=== PATIENT | female | born 1950 ===

== ENCOUNTER 2019-09-09 18:53 | Inpatient (IN) | payer MEDICARE ==
[2019-09-10] MEDS ORDERED: ONDANSETRON 4 MG/2 ML INJ IV PRN (01:46)
[2019-09-10] MEDS ORDERED: ACETAMINOPHEN 325 MG TAB PO PRN (01:46)
--- NOTE | 2019-09-10 03:03 | History and Physical Report ---
History of Present Illness Date of examination: 09/10/19 Date of admission: 09/10/19 00:27 Chief complaint: Constipation and abdominal pain History of present illness: 69-year-old -[place] female with known history of hypertension hyperlipidemia COPD was transferred from [facility] today having been admitted for unintentional 40 pounds weight loss over a period of 1 month. She had also complaining of abdominal and rectal pain and also constipation for about a week. She has been prepared for colonoscopy and was subsequently transferred to this facility from [facility] for further care. She currently denies any problems, denies any abdominal pain, no nausea vomiting. Past History Past Medical History: COPD, hypertension Past Surgical History: appendectomy Social history: smoking (Smokes less than a pack of cigarette daily) Family history: other (Heart disease in mother) Medications and Allergies Allergies Allergy/AdvReac Type Severity Reaction Status Date / Time No Known Allergies Allergy Verified 09/10/19 05:57 Active Meds: Active Medications Acetaminophen (Tylenol) 650 mg PO Q4H PRN PRN Reason: Pain MILD(1-3)/Fever >100.5/HUANG Sodium Chloride (Nacl 0.9% 1000 Ml) 1,000 mls @ 75 mls/hr IV DIRECT ANNA Morphine Sulfate (Morphine) 2 mg IV Q4H PRN PRN Reason: Pain, Moderate (4-6) Ondansetron HCl (Zofran) 4 mg IV Q8H PRN PRN Reason: Nausea And Vomiting Sodium Chloride (Sodium Chloride Flush Syringe 10 Ml) 10 ml IV BID ANNA Sodium Chloride (Sodium Chloride Flush Syringe 10 Ml) 10 ml IV PRN PRN PRN Reason: LINE FLUSH Review of Systems Constitutional: weight loss Gastrointestinal: constipation Exam - Constitutional Vitals: Temp Pulse Resp BP Pulse Ox 98.9 F 83 18 147/87 99 09/10/19 00:37 09/10/19 00:37 09/10/19 00:37 09/10/19 00:37 09/10/19 00:37 General appearance: Present: no acute distress, cachectic - EENT Eyes: Present: PERRL, EOM intact ENT: hearing intact, clear oral mucosa - Neck Neck: Present: supple, normal ROM - Respiratory Respiratory: bilateral: CTA - Cardiovascular Rhythm: regular Heart Sounds: Present: S1 & S2 - Extremities Extremities: no ischemia, pulses intact, No edema, Full ROM Peripheral Pulses: within normal limits - Abdominal General gastrointestinal: Present: soft, non-tender, non-distended - Integumentary Integumentary: Present: clear, warm, dry - Musculoskeletal Musculoskeletal: strength equal bilaterally - Psychiatric Psychiatric: appropriate mood/affect, intact judgment & insight, cooperative - Neurologic Neurologic: CNII-XII intact, moves all extremities Assessment and Plan - Patient Problems (1) Constipation Current Visit: Yes Status: Acute Plan to address problem: Patient has taken some GoLYTELY and being currently prepared for colonoscopy. We will request stat gastroenterology follow-up. (2) Weight loss Current Visit: Yes Status: Acute Plan to address problem: Etiology is unclear. We will monitor weight. Imaging findings at [facility] was suspicious for metastatic malignancy and metastatic ovarian or colonic cancer. Patient is being worked up for colonoscopy. (3) Hypertension Current Visit: Yes Status: Acute Plan to address problem: Blood pressure stable. We will monitor vital signs closely. We will continue routine home medications. (4) Full code status Current Visit: Yes Status: Acute
--- NOTE | 2019-09-10 10:30 | Gastroenterology Consultation ---
History of Present Illness - Reason for Consult Consult date: 09/10/19 constipation, wt loss, evaluate for colonoscopy Requesting physician: MEREDITH REDMAN - History of Present Illness Patient is a 69 y/o female with PMH of HTN, HLD, and COPD who was transferred from [facility] for further care after being admitted for c/o abdominal pain, constipation, N/V, and unintentional weight loss over the past couple of months. Labs (DANAY; CEA/CA 19-9 elevated) and Abd CT findings (adnexal lesion, sigmod thickening, hepatic lesion?, and adrenal lesion; CT chest with no overt metastatic disease) at [place] were concerning for metastatic malignancy (ovarian vs GI?) with patient pending further workup with a colonoscopy. This morning patient was resting in bed w/o acute distress. Reports continued abdominal pain but no current N/V. Drank 3/4 on colon prep (Golytely) overnight with last BM this am light watery brown (no solid stool). Denies signs of bleeding. No previous colonoscopy or Fhx of colon cancer. Past History Past Medical History: COPD, hypertension Past Surgical History: appendectomy Social history: smoking (Smokes less than a pack of cigarette daily) Family history: other (Heart disease in mother) Medications and Allergies Allergies Allergy/AdvReac Type Severity Reaction Status Date / Time No Known Allergies Allergy Verified 09/10/19 05:57 Home Medications Medication Instructions Recorded Confirmed Last Taken Type Aspirin EC [Halfprin EC] 81 mg DAILY 09/10/19 09/10/19 Unknown History AtorvaSTATin [Lipitor] 10 mg PO QHS 09/10/19 09/10/19 Unknown History Chlorthalidone 50 mg DAILY 09/10/19 09/10/19 Unknown History Active Meds: Active Medications Acetaminophen (Tylenol) 650 mg PO Q4H PRN PRN Reason: Pain MILD(1-3)/Fever >100.5/HUANG Sodium Chloride (Nacl 0.9% 1000 Ml) 1,000 mls @ 75 mls/hr IV DIRECT ANNA Magnesium Citrate (Citrate Of Magnesia) 300 ml PO ONCE ONE Stop: 09/10/19 10:29 Morphine Sulfate (Morphine) 2 mg IV Q4H PRN PRN Reason: Pain, Moderate (4-6) Ondansetron HCl (Zofran) 4 mg IV Q8H PRN PRN Reason: Nausea And Vomiting Sodium Chloride (Sodium Chloride Flush Syringe 10 Ml) 10 ml IV BID ANNA Last Admin: 09/10/19 09:22 Dose: 10 ml Documented by: Sodium Chloride (Sodium Chloride Flush Syringe 10 Ml) 10 ml IV PRN PRN PRN Reason: LINE FLUSH medications reviewed/updated as required Review of Systems - Review of Systems All systems: negative Constitutional: weight loss Gastrointestinal: abdominal pain, nausea, vomiting, constipation Exam - Constitutional Vital Signs: Temp Pulse Resp BP Pulse Ox 98.4 F 94 H 16 131/65 95 09/10/19 02:36 09/10/19 02:36 09/10/19 02:36 09/10/19 02:36 09/10/19 02:36 General appearance: no acute distress, cachectic - EENT Eyes: PERRL, EOM intact ENT: hearing intact - Respiratory Respiratory effort: normal - Cardiovascular Rhythm: regular - Gastrointestinal General gastrointestinal: Present: soft, tender (slight TTP), distended (slightly), normal bowel sounds - Integumentary Integumentary: Present: warm, dry - Neurologic Neurological: alert and oriented x3 Assessment and Plan 1.abdominal pain 2.N/V 3.constipation 4.iron deficiency anemia 5.abnormal CT (concern for malignancy) -afebrile -H/H 11.3/36.1, ferritin 22 (09/08 at [facility])-continue to monitor and transfuse as needed; no active signs of bleeding -CEA/CA 19-9 elevated (at [place]) -abd CT (at [facility]) showed adnexal lesion, sigmoid thickening, hepatic lesion?, and adrenal lesion with concerns for metastatic disease (CT chest w/o overt metastatic disease) -per chart review, IR at [facility] noted liver lesion too superficial and close to pleura for biopsy, also not convinced it is a liver lesion but could be a pleural thickening, and adnexal lesion appears cystic and necrotic in nature and would require surgical excision -colonoscopy was recommended for further evaluation with patient given Golytely overnight (drank 3/4 with last BM with liquid light brown stool) -will order repeat labs for today, give 1 bottle of mag citrate now, and schedule for colonoscopy this afternoon -Keep NPO (okay for meds) -continue supportive care -further recommendations to follow pending colonoscopy results
[2019-09-10] MEDS ORDERED: MAGNESIUM CITRATE 300 ML ORAL LIQD PO NR (11:00)
[2019-09-10] MEDS ORDERED: SODIUM CHLORIDE 0.9% 1000 ML 1,000 ML ONE (13:12)
[2019-09-10] MEDS: SODIUM CHLORIDE 0.9% 1000 ML 1,000 ML IV SCH (13:40)
[2019-09-10] MEDS ORDERED: SODIUM CHLORIDE 0.9% 1000 ML 1,000 ML IV SCH (13:45)
[2019-09-10] MEDS ORDERED: PROPOFOL 200 MG/20 ML VIAL IV ONE (14:13)
--- NOTE | 2019-09-10 14:20 | Anesthesia Consultation ---
Anesthesia Consult and Med Hx Date of service: 09/10/19 - Airway Anesthetic Teeth Evaluation: Poor ROM Head & Neck: Adequate Mental/Hyoid Distance: Adequate Mallampati Class: Class I Intubation Access Assessment: Good - Pulmonary Exam CTA: Yes - Cardiac Exam Cardiac Exam: RRR - Pre-Operative Health Status ASA Pre-Surgery Classification: ASA3 Proposed Anesthetic Plan: MAC - Pulmonary Hx Smoking: Yes COPD: Yes - Cardiovascular System Hx Hypertension: Yes - Central Nervous System Hx Neuromuscular Disorder: No Hx Psychiatric Problems: No - Gastrointestinal Hx Gastroesophageal Reflux Disease: No - Endocrine Hx Renal Disease: No - Other Systems Hx Alcohol Use: No Hx Substance Use: No Hx Cancer: Yes (Ovarian Ca) - Additional Comments Anesthesia Medical History Comments: Patient denied previous anesthesia related complications.
--- NOTE | 2019-09-10 14:21 | Anesthesia Day of Surgery ---
Anesthesia Day of Surgery - Day of Surgery Patient Examined: Yes Patient H&P Reviewed: Yes Patient is NPO: Yes
--- NOTE | 2019-09-10 15:09 | Operative Report ---
Operative Report Operative Report: Flexible sigmoidoscopy: Procedure: Flexible sigmoidoscopy with biopsies Endoscopist: Fermin Smith MD Pre-operative Diagnosis/Indications:abnormal CT, weight loss Post-operative Diagnosis: distal sigmoid mass, poor prep History:See consult note Sedation:MAC Procedure Details: Indications, risks, and benefits were explained and consent was obtained. Pt was placed in the left lateral decubitus position and sedated. Video colonoscope was inserted thru the anus after digital exam, and advanced to the distal sigmoid colon. Scope was then gradually withdrawn with close inspection of the mucosa. Prep was poor. Findings: 1. There was an obstructing mass-like lesion in the distal sigmoid colon at about 20 cm. Despite multiple attempts, the scope could not be advanced beyond this area. A complete visualization of the mass lesion could not be obtained due to thicken surrounding mucosa and prep quality. Biopsies were obtained. The adjacent mucosa was marked with tattoo. 2. Nonbleeding small internal hemorrhoids seen on retroflexion view. Specimens:sigmoid colon mass biopsies. Complications:None; patient tolerated the procedure well. Disposition:Recover in the GI endoscopy unit and transfer to the floor. Impression: 1. There was an obstructing mass-like lesion in the distal sigmoid colon at about 20 cm. Despite multiple attempts, the scope could not be advanced beyond this area. A complete visualization of the mass lesion could not be obtained due to thicken surrounding mucosa and prep quality. Biopsies were obtained. The adjacent mucosa was marked with tattoo. This lesion is concerning for malignancy with possible mets as reported on CT done at [place]. Do not feel that there is complete obstruction due to this lesion. 2. Nonbleeding small internal hemorrhoids seen on retroflexion view. Recommendations: 1. Resume clear liquid diet. 2. Follow up pathology results. 3. Discussed with surgery. Will place a consult. 4. May need repeat or additional imaging if no access to the disc.
[2019-09-10] MEDS ORDERED: MORPHINE 2 MG/1 ML INJ ONE (15:48)
--- NOTE | 2019-09-10 16:09 | Consultation ---
History of Present Illness Consult date: 09/10/19 Reason for consult: abdominal pain Chief complaint: abdominal pain - History of present illness History of present illness: 69 yo F with hx of presented to [facility] with weight loss, abdominal pain, fatigue. Patient states she has been having periumbilical and right sided abdominal pain for several months. She has lost 40 lbs and has no appetite. She has one episode of emesis prior to presenting to [facility]. Her last solid BM was last Sunday. At [facility], she underwent w/u with labs including CEA, CA19-9 which were reported as high. She also had a CT scan A/P which was concerning for a necrotic right adnexal mass, thickening of the sigmoid colon, and a liver lesion. This was felt to be worrisome for metasatic ovarian ca. Per records, the liver lesion wad felt to be artifact due to pleural thickening and adnexal lesion was not accessible by IR biopsy due to location. Colonoscopy was planned. Pt was sent to [facility] for further care. She underwent colonoscopy today and was found to have a sigmoid mass that was not obstructing but could not be passed with the scope. Surgery is consulted for evaluation. Pt was able to tolerate a prep for cscope. She denies hematochezia, melena, hematemesis Past History Past Medical History: COPD, hypertension Past Surgical History: appendectomy Social history: smoking (Smokes less than a pack of cigarette daily) Family history: other (Heart disease in mother) Medications and Allergies Allergies Allergy/AdvReac Type Severity Reaction Status Date / Time No Known Allergies Allergy Verified 09/10/19 05:57 Home Medications Medication Instructions Recorded Confirmed Last Taken Type Aspirin EC [Halfprin EC] 81 mg DAILY 09/10/19 09/10/19 Unknown History AtorvaSTATin [Lipitor] 10 mg PO QHS 09/10/19 09/10/19 Unknown History Chlorthalidone 50 mg DAILY 09/10/19 09/10/19 Unknown History Active Meds: Active Medications Acetaminophen (Tylenol) 650 mg PO Q4H PRN PRN Reason: Pain MILD(1-3)/Fever >100.5/HUANG Sodium Chloride (Nacl 0.9% 1000 Ml) 1,000 mls @ 75 mls/hr IV DIRECT ANNA Last Admin: 09/10/19 13:40 Dose: 75 mls/hr Documented by: Sodium Chloride (Nacl 0.9% 1000 Ml) 1,000 mls @ 50 mls/hr IV DIRECT ANNA Magnesium Citrate (Citrate Of Magnesia) 300 ml PO ONCE NR Stop: 09/11/19 14:00 Last Admin: 09/10/19 11:26 Dose: 300 ml Documented by: Morphine Sulfate (Morphine) 2 mg IV Q4H PRN PRN Reason: Pain, Moderate (4-6) Ondansetron HCl (Zofran) 4 mg IV Q8H PRN PRN Reason: Nausea And Vomiting Sodium Chloride (Sodium Chloride Flush Syringe 10 Ml) 10 ml IV BID ANNA Last Admin: 09/10/19 09:22 Dose: 10 ml Documented by: Sodium Chloride (Sodium Chloride Flush Syringe 10 Ml) 10 ml IV PRN PRN PRN Reason: LINE FLUSH Review of Systems All systems: negative (10 PT ROS performed and negative except for that listed in HPI) Exam Vital Signs Temp Pulse Resp BP Pulse Ox 98.9 F 83 18 147/87 99 09/10/19 00:37 09/10/19 00:37 09/10/19 00:37 09/10/19 00:37 09/10/19 00:37 Narrative exam: Gen: AAOx3. NAD. Cachectic with temporal wasting ENT: no scleral icterus or conjunctival pallor CV: s1, S2+. tachy Resp: even and unlabored Abd: soft, mildly distended, R sided and periumbilical TTP. No r/r/g Ext: no c/c/e Assessment and Plan 69 yo F with sigmoid colon mass, possible metastatic disease Plan: All records from [facility] Reviewed. No CD available to review imaging. 1. Recommend repeat CT scan A/P with oral and IV contrast 2. Obtain CBC, BMP, CEA ,CA19-9, CA125 3. await pathology from [facility] 4. nutrition consult 5. Further recs pending repeat imaging Thank you, please call with questions.
--- NOTE | 2019-09-10 16:55 | Progress Note ---
Subjective Date of service: 09/10/19 Objective - Constitutional Vitals: Vital Signs - 12hr 09/10/19 09/10/19 09/10/19 12:36 13:00 13:30 Temperature 98.5 F 98.5 F Pulse Rate 87 87 Respiratory 24 24 Rate Blood Pressure 148/89 148/89 O2 Sat by Pulse 99 99 99 Oximetry 09/10/19 09/10/19 09/10/19 15:02 15:16 15:23 Temperature 97.5 F L Pulse Rate 73 78 73 Respiratory 19 13 14 Rate Blood Pressure 151/71 167/81 165/85 O2 Sat by Pulse 100 99 99 Oximetry 09/10/19 09/10/19 09/10/19 15:32 15:55 16:01 Temperature Pulse Rate 80 77 Respiratory 24 15 13 Rate Blood Pressure 160/86 169/91 O2 Sat by Pulse 99 99 Oximetry 09/10/19 09/10/19 16:06 16:19 Temperature Pulse Rate 76 78 Respiratory 18 20 Rate Blood Pressure 138/73 130/78 O2 Sat by Pulse 98 98 Oximetry
[2019-09-10 18:25] LABS: Basophils # (Auto) 0.1 K/mm3 (0.0-0.1); Basophils % (Auto) 0.9 % (0.0-1.8); Eosinophils # (Auto) 0.2 K/mm3 (0.0-0.4); Eosinophils % (Auto) 1.7 % (0.0-4.3); Hemoglobin 11.7 gm/dl (10.1-14.3); Lymphocytes # (Auto) 2.8 K/mm3 (1.2-5.4); Lymphocytes % (Auto) 30.3 % (13.4-35.0); Mean Corpuscular HGB Conc 32 % (30-34); Mean Corpuscular Volume 75 fl (79-97); Monocytes # (Auto) 0.6 K/mm3 (0.0-0.8); Monocytes % (Auto) 6.5 % (0.0-7.3); Platelet Count 453 K/mm3 (140-440); Red Blood Count 4.91 M/mm3 (3.65-5.03); Red Cell Distribution Width 17.7 % (13.2-15.2)
[2019-09-10 18:34] LABS: INR 1.08 (0.87-1.13)
[2019-09-10 18:49] LABS: Alanine Aminotransferase 72 units/L (7-56); Albumin 3.3 g/dL (3.9-5); BUN/Creatinine Ratio 28; Blood Urea Nitrogen 11 mg/dL (7-17); Calcium 9.2 mg/dL (8.4-10.2); Hemolysis Index 18; Prealbumin 0.116 g/L (0.200-0.400)
--- NOTE | 2019-09-10 21:49 | Post Anesthesia Evaluation ---
- Post Anesthesia Evaluation Patient Participated: Yes Airway Patent: Yes Stable Respiratory Function: Yes Nausea/Vomiting: No Temp > 96.8F: Yes Pain Manageable: Yes Adequeate Hydration: Yes Anesthesia Complications: No Block Receding Appropriately: Not Applicable Patient on Ventilator: No
[2019-09-10] MEDS: MORPHINE 2 MG/1 ML INJ IV PRN (22:35)
[2019-09-11 04:14] LABS: Basophils # (Auto) 0.1 K/mm3 (0.0-0.1); Basophils % (Auto) 0.9 % (0.0-1.8); Eosinophils # (Auto) 0.2 K/mm3 (0.0-0.4); Eosinophils % (Auto) 3.3 % (0.0-4.3); Hematocrit 32.8 % (30.3-42.9); Hemoglobin 10.6 gm/dl (10.1-14.3); Lymphocytes # (Auto) 2.3 K/mm3 (1.2-5.4); Mean Corpuscular HGB Conc 32 % (30-34); Mean Corpuscular Volume 75 fl (79-97); Monocytes # (Auto) 0.7 K/mm3 (0.0-0.8); Monocytes % (Auto) 10.8 % (0.0-7.3); Platelet Count 409 K/mm3 (140-440); Red Cell Distribution Width 17.1 % (13.2-15.2)
[2019-09-11 04:34] LABS: BUN/Creatinine Ratio 25; Blood Urea Nitrogen 10 mg/dL (7-17); Calcium 8.5 mg/dL (8.4-10.2); Hemolysis Index 10
--- NOTE | 2019-09-11 07:03 | Event Note ---
Date: 09/10/19 Early AM admission Colonoscopy findings; 1. There was an obstructing mass-like lesion in the distal sigmoid colon at about 20 cm. Despite multiple attempts, the scope could not be advanced beyond this area. A complete visualization of the mass lesion could not be obtained due to thicken surrounding mucosa and prep quality. Biopsies were obtained. The adjacent mucosa was marked with tattoo. This lesion is concerning for malignancy with possible mets as reported on CT done at [place]. Do not feel that there is complete obstruction due to this lesion. 2. Nonbleeding small internal hemorrhoids seen on retroflexion view. Recommendations: 1. Resume clear liquid diet. 2. Follow up pathology results. 3. Surgery consult. 4. May need repeat or additional imaging if no access to the disc.
[2019-09-11] MEDS: SODIUM CHLORIDE 0.9% 1000 ML 1,000 ML IV SCH ×2 (09:46→22:45)
--- NOTE | 2019-09-11 10:20 | Gastroenterology Progress Note ---
Assessment and Plan 1.abdominal pain 2.N/V 3.constipation 4.iron deficiency anemia 5.abnormal CT (concern for malignancy with metastatic disease) -afebrile -H/H 10.6/32.8, ferritin 22-continue to monitor and transfuse as needed; no active signs of bleeding -CEA/CA 19-9 elevated (at [place])- repeat tumor markers pending -abd CT (at [place]) showed adnexal lesion, sigmoid thickening, hepatic lesion?, and adrenal lesion with concerns for metastatic disease (CT chest w/o overt metastatic disease) -per chart review, IR at [place] noted liver lesion too superficial and close to pleura for biopsy, also not convinced it is a liver lesion but could be a pleural thickening, and adnexal lesion appears cystic and necrotic in nature and would require surgical excision -s/p attempted colonoscopy yesterday with results showing an obstructing mass- like lesion in the distal sigmoid at ~20cm (scope could not be advanced beyong this area; adjacent mucosa marked with tattoo) concerning for malignancy -bx results pending- if + malignancy, recommend oncology consult -surgery following with repeat abd CT scan pending for today -continue supportive care -no further GI recommendations at this time -will sign off and defer further management per surgery/primary team -please call if needed Subjective Date of service: 09/11/19 Principal diagnosis: evalate for colonoscopy, abd pain, constipation Interval history: No acute distress. Reports continued abdominal pain. No N/V or signs of bleeding. Requesting PO. Objective - Constitutional Vitals: Temp Pulse Resp BP Pulse Ox 98.9 F 88 18 131/77 97 09/11/19 07:04 09/11/19 07:04 09/11/19 07:04 09/11/19 07:04 09/11/19 07:04 General appearance: no acute distress, cachectic - EENT Eyes: PERRL, EOM intact ENT: hearing intact - Respiratory Respiratory effort: normal - Cardiovascular Rhythm: regular - Gastrointestinal General gastrointestinal: Present: soft, tender, distended (slightly), normal bowel sounds - Neurologic Neurological: alert and oriented x3 - Labs CBC & Chem 7: 09/11/19 03:36 09/11/19 03:36 Labs: Laboratory Results - last 24 hr 09/10/19 09/10/19 09/10/19 18:07 18:07 18:08 WBC 9.2 RBC 4.91 Hgb 11.7 Hct 37.0 MCV 75 L MCH 24 L MCHC 32 RDW 17.7 H Plt Count 453 H Lymph % (Auto) 30.3 [place] % (Auto) 6.5 Eos % (Auto) 1.7 Baso % (Auto) 0.9 Lymph # 2.8 [place] # 0.6 Eos # 0.2 Baso # 0.1 Seg Neutrophils % 60.6 Seg Neutrophils # 5.6 PT 14.1 INR 1.08 APTT Sodium 136 L Potassium 3.9 Chloride 98.5 Carbon Dioxide 21 L Anion Gap 20 BUN 11 Creatinine 0.4 L Estimated GFR > 60 BUN/Creatinine Ratio 28 Glucose 130 H Calcium 9.2 Total Bilirubin 0.50 AST 81 H ALT 72 H Alkaline Phosphatase 115 Total Protein 6.8 Albumin 3.3 L Albumin/Globulin Ratio 0.9 Prealbumin 0.116 L 09/11/19 09/11/19 09/11/19 03:36 03:36 03:36 WBC 6.2 RBC 4.40 Hgb 10.6 Hct 32.8 MCV 75 L MCH 24 L MCHC 32 RDW 17.1 H Plt Count 409 Lymph % (Auto) 37.0 H [place] % (Auto) 10.8 H Eos % (Auto) 3.3 Baso % (Auto) 0.9 Lymph # 2.3 [place] # 0.7 Eos # 0.2 Baso # 0.1 Seg Neutrophils % 48.0 Seg Neutrophils # 3.0 PT INR APTT 31.5 Sodium 139 Potassium 3.5 L Chloride 104.6 Carbon Dioxide 25 Anion Gap 13 BUN 10 Creatinine 0.4 L Estimated GFR > 60 BUN/Creatinine Ratio 25 Glucose 81 Calcium 8.5 Total Bilirubin AST ALT Alkaline Phosphatase Total Protein Albumin Albumin/Globulin Ratio Prealbumin
--- NOTE | 2019-09-11 11:08 | Progress Note ---
Assessment and Plan Assessment and plan: Abdominal pain. Abd CT (at [place]) showed adnexal lesion, sigmoid thickening, hepatic lesion?, and adrenal lesion with concerns for metastatic disease (CT chest w/o overt metastatic disease). Colonoscopy revealed an obstructing mass- like lesion in the distal sigmoid colon at about 20 cm. Despite multiple attempts, the scope could not be advanced beyond this area. A complete visu alization of the mass lesion could not be obtained due to thicken surrounding mucosa and prep quality. Biopsies were obtained. The adjacent mucosa was marked with tattoo. This lesion is concerning for malignancy with possible mets as reported on CT done at [place]. Do not feel that there is complete obstruction due to this lesion. F/U path. Surgery consult pending. CEA/CA 19-9 elevated. CEA/CA 19-9 elevated (at [place]) N/V. Cont antiemetics. Iron def anemia. -H/H 11.3/36.1, ferritin 22 (09/08 at [place])-continue to monitor and transfuse as needed; no active signs of bleeding History Interval history: No new issues overnight. Hospitalist Physical - Constitutional Vitals: Temp Pulse Resp BP Pulse Ox 98.9 F 88 18 131/77 97 09/11/19 07:04 09/11/19 07:04 09/11/19 07:04 09/11/19 07:04 09/11/19 07:04 General appearance: Present: no acute distress, cachectic - EENT Eyes: Present: PERRL, EOM intact ENT: hearing intact, clear oral mucosa, dentition normal - Neck Neck: Present: supple, normal ROM - Respiratory Respiratory effort: normal Respiratory: bilateral: CTA - Cardiovascular Rhythm: regular Heart Sounds: Present: S1 & S2. Absent: gallop, rub - Extremities Extremities: no ischemia, No edema, Full ROM - Abdominal General gastrointestinal: soft, non-tender, non-distended, normal bowel sounds - Integumentary Integumentary: Present: clear, warm, dry - Neurologic Neurologic: CNII-XII intact, moves all extremities Results - Labs CBC & Chem 7: 09/11/19 03:36 09/11/19 03:36 Labs: Laboratory Last Values WBC 6.2 K/mm3 (4.5-11.0) 09/11/19 03:36 RBC 4.40 M/mm3 (3.65-5.03) 09/11/19 03:36 Hgb 10.6 gm/dl (10.1-14.3) 09/11/19 03:36 Hct 32.8 % (30.3-42.9) 09/11/19 03:36 MCV 75 fl (79-97) L 09/11/19 03:36 MCH 24 pg (28-32) L 09/11/19 03:36 MCHC 32 % (30-34) 09/11/19 03:36 RDW 17.1 % (13.2-15.2) H 09/11/19 03:36 Plt Count 409 K/mm3 (140-440) 09/11/19 03:36 Lymph % (Auto) 37.0 % (13.4-35.0) H 09/11/19 03:36 [place] % (Auto) 10.8 % (0.0-7.3) H 09/11/19 03:36 Eos % (Auto) 3.3 % (0.0-4.3) 09/11/19 03:36 Baso % (Auto) 0.9 % (0.0-1.8) 09/11/19 03:36 Lymph # 2.3 K/mm3 (1.2-5.4) 09/11/19 03:36 [place] # 0.7 K/mm3 (0.0-0.8) 09/11/19 03:36 Eos # 0.2 K/mm3 (0.0-0.4) 09/11/19 03:36 Baso # 0.1 K/mm3 (0.0-0.1) 09/11/19 03:36 Seg Neutrophils % 48.0 % (40.0-70.0) 09/11/19 03:36 Seg Neutrophils # 3.0 K/mm3 (1.8-7.7) 09/11/19 03:36 PT 14.1 Sec. (12.2-14.9) 09/10/19 18:07 INR 1.08 (0.87-1.13) 09/10/19 18:07 APTT 31.5 Sec. (24.2-36.6) 09/11/19 03:36 Sodium 139 mmol/L (137-145) 09/11/19 03:36 Potassium 3.5 mmol/L (3.6-5.0) L 09/11/19 03:36 Chloride 104.6 mmol/L (98-107) 09/11/19 03:36 Carbon Dioxide 25 mmol/L (22-30) 09/11/19 03:36 Anion Gap 13 mmol/L 09/11/19 03:36 BUN 10 mg/dL (7-17) 09/11/19 03:36 Creatinine 0.4 mg/dL (0.7-1.2) L 09/11/19 03:36 Estimated GFR > 60 ml/min 09/11/19 03:36 BUN/Creatinine Ratio 25 % 09/11/19 03:36 Glucose 81 mg/dL (65-100) 09/11/19 03:36 Calcium 8.5 mg/dL (8.4-10.2) 09/11/19 03:36 Total Bilirubin 0.50 mg/dL (0.1-1.2) 09/10/19 18:07 AST 81 units/L (5-40) H 09/10/19 18:07 ALT 72 units/L (7-56) H 09/10/19 18:07 Alkaline Phosphatase 115 units/L (35-129) 09/10/19 18:07 Total Protein 6.8 g/dL (6.3-8.2) 09/10/19 18:07 Albumin 3.3 g/dL (3.9-5) L 09/10/19 18:07 Albumin/Globulin Ratio 0.9 % 09/10/19 18:07 Prealbumin 0.116 g/L (0.200-0.400) L 09/10/19 18:07 Active Medications - Current Medications Current Medications: Generic Name Dose Route Start Last Admin Trade Name Freq PRN Reason Stop Dose Admin Acetaminophen 650 mg 09/10/19 01:46 Tylenol PO Q4H PRN Pain MILD(1-3)/Fever >100.5/HUANG Sodium Chloride 1,000 mls @ 75 mls/hr 09/10/19 02:00 09/11/19 09:46 Nacl 0.9% 1000 Ml IV 75 mls/hr DIRECT ANNA Administration Sodium Chloride 1,000 mls @ 50 mls/hr 09/10/19 13:45 Nacl 0.9% 1000 Ml IV DIRECT ANNA Magnesium Citrate 300 ml 09/10/19 11:00 09/10/19 11:26 Citrate Of Magnesia PO 09/11/19 14:00 300 ml ONCE NR Administration Morphine Sulfate 2 mg 09/10/19 01:46 09/10/19 22:35 Morphine IV 2 mg Q4H PRN Administration Pain, Moderate (4-6) Ondansetron HCl 4 mg 09/10/19 01:46 Zofran IV Q8H PRN Nausea And Vomiting Sodium Chloride 10 ml 09/10/19 10:00 09/11/19 09:41 Sodium Chloride Flush Syringe 10 Ml IV 10 ml BID ANNA Administration Sodium Chloride 10 ml 09/10/19 01:46 Sodium Chloride Flush Syringe 10 Ml IV PRN PRN LINE FLUSH Nutrition/Malnutrition Assess - Dietary Evaluation Nutrition/Malnutrition Findings: Nutrition Notes Start: 09/10/19 09:32 Freq: Status: Active Protocol: Document 09/10/19 09:32 PS (Rec: 09/10/19 10:49 PS [id number]) Co-Sign 09/10/19 09:32 LM Nutrition Notes Need for Assessment generated from: Low BMI Initial or Follow up Brief Note Height 5 ft 4 in [place] Body Weight (kg) 54.54 Subjective/Other Information Pt. did not have ht in the chart. Pt states she is 64 in tall.
[2019-09-11] MEDS: MORPHINE 2 MG/1 ML INJ IV PRN ×2 (11:15→19:43)
--- NOTE | 2019-09-11 12:36 | Cat Scan Report ---
CT ABDOMEN AND PELVIS WITH CONTRAST HISTORY: sigmoid colon mass, possible mets. COMPARISON: None at this facility TECHNIQUE: Helical CT images of the abdomen and pelvis were obtained following administration of intr avenous contrast. Sagittal and coronal reformatted images were reviewed. All CT scans at this [facility] are performed using CT dose reduction for ALARA by means of automated exposure control. CONTRAST: 100 ml of intravenous contrast administered. FINDINGS: Abdomen/pelvis: There is a complex partially cystic mass in the pelvis with nodular enhancement evens uring up to 8.4 x 6.6 cm. The epicenter of this mass overlies the uterus/right adnexa. No normal uter us or right ovary is visualized. This may represent a right ovarian neoplasm. There are scattered enh ancing peritoneal deposits throughout the pelvis ranging from 1-2 cm in diameter. A larger peritoneal deposit is identified along the left anterior abdominal wall measuring 3.9 x 1.1 cm on image 57. The re is moderate ascites throughout the abdomen. These findings suggest metastatic ovarian cancer. There is circumferential thickening of the sigmoid colon however I am not entirely convinced a separa te sigmoid mass is present. The sigmoid abnormality could be secondary to extension of ovarian cancer . The sigmoid colon does appear moderately narrowed but no bowel obstruction is demonstrated. The liver is unremarkable. No liver lesion is detected. The biliary system, pancreas, spleen, kidneys and adrenal glands are unremarkable. There are mild distal aortic calcifications. No aneurysm. The bladder is decompressed. Lungs/bones: Small pleural effusions layer posteriorly at the lung bases. The visualized lung bases are well-aerated. Normal heart size. No suspicious bony lesion is detected. IMPRESSION: Complex enhancing mass in the pelvis, peritoneal deposits and ascites suggest metastatic ovarian canc er. The sigmoid colon is abnormal as described above. It is unclear if this represents extension of OB/GY N cancer or a separate sigmoid mass. I favor extension of ovarian cancer. Small layering pleural effusions. These findings were discussed with Dr. Priest of surgery at 1220 hours. Signer Name: Jerrell Nails Jr, MD Signed: 09/11/2019 12:31 PM Workstation Name: [id number]
--- NOTE | 2019-09-11 14:13 | Progress Note ---
Assessment and Plan 69 yo F with possible sigmoid mass, right adnexal mass, weight loss Ct scan A/P reviewed with Dr. Nails - irregular right adnexal mass, peritoneal and omental deposits and irrgeular thickening of sigmoid colon without obstruction - favoring metastatic ovarian cancer, less likely 2 primary cancers. Plan: 1. adv to full liquid diet 2. prn pain control 3. oncology consult 4. follow up colonoscopy biopsy results 5. follow up tumor markers At this time, no urgent surgical intervention is indicated. If patient does become obstructed, would consider diverting colostomy. She is NOT obstructed at this time. Thank you, please call with questions. Subjective Date of service: 09/11/19 Narrative: Pt seen and examined. c/o right sided abdominal pain. No f/c, cp, sob, n/v. Has been tolerating clear liquid diet. Has been passing flatus and having loose BMs. Objective Vital Signs - 12hr 09/11/19 09/11/19 09/11/19 02:40 07:04 12:00 Temperature 97.6 F 98.9 F Pulse Rate 88 Pulse Rate [ 97 H From Monitor] Respiratory 20 18 Rate Blood Pressure 142/69 131/77 O2 Sat by Pulse 97 98 Oximetry 09/11/19 13:37 Temperature 98.4 F Pulse Rate 96 H Pulse Rate [ From Monitor] Respiratory 18 Rate Blood Pressure 142/73 O2 Sat by Pulse 97 Oximetry - General physical appearance Narrative Exam: Gen; AAOx3. NAD CV: S1, S2+ Resp: even and unlabored Abd: soft, ND, mild R sided TTP. No r/r/g Ext: no c/c/e - Labs 09/11/19 03:36 09/11/19 03:36 Diabetes panel 09/10/19 09/11/19 Range/Units 18:07 03:36 Sodium 136 L 139 (137-145) mmol/L Potassium 3.9 3.5 L (3.6-5.0) mmol/L Chloride 98.5 104.6 (98-107) mmol/L Carbon Dioxide 21 L 25 (22-30) mmol/L BUN 11 10 (7-17) mg/dL Creatinine 0.4 L 0.4 L (0.7-1.2) mg/dL Glucose 130 H 81 (65-100) mg/dL Calcium 9.2 8.5 (8.4-10.2) mg/dL AST 81 H (5-40) units/L ALT 72 H (7-56) units/L Alkaline Phosphatase 115 (35-129) units/L Total Protein 6.8 (6.3-8.2) g/dL Albumin 3.3 L (3.9-5) g/dL Calcium panel 09/10/19 09/11/19 Range/Units 18:07 03:36 Calcium 9.2 8.5 (8.4-10.2) mg/dL Albumin 3.3 L (3.9-5) g/dL Pituitary panel 09/10/19 09/11/19 Range/Units 18:07 03:36 Sodium 136 L 139 (137-145) mmol/L Potassium 3.9 3.5 L (3.6-5.0) mmol/L Chloride 98.5 104.6 (98-107) mmol/L Carbon Dioxide 21 L 25 (22-30) mmol/L BUN 11 10 (7-17) mg/dL Creatinine 0.4 L 0.4 L (0.7-1.2) mg/dL Glucose 130 H 81 (65-100) mg/dL Calcium 9.2 8.5 (8.4-10.2) mg/dL Adrenal panel 09/10/19 09/11/19 Range/Units 18:07 03:36 Sodium 136 L 139 (137-145) mmol/L Potassium 3.9 3.5 L (3.6-5.0) mmol/L Chloride 98.5 104.6 (98-107) mmol/L Carbon Dioxide 21 L 25 (22-30) mmol/L BUN 11 10 (7-17) mg/dL Creatinine 0.4 L 0.4 L (0.7-1.2) mg/dL Glucose 130 H 81 (65-100) mg/dL Calcium 9.2 8.5 (8.4-10.2) mg/dL Total Bilirubin 0.50 (0.1-1.2) mg/dL AST 81 H (5-40) units/L ALT 72 H (7-56) units/L Alkaline Phosphatase 115 (35-129) units/L Total Protein 6.8 (6.3-8.2) g/dL Albumin 3.3 L (3.9-5) g/dL
[2019-09-12 05:09] LABS: Basophils % (Auto) 0.8 % (0.0-1.8); Eosinophils # (Auto) 0.2 K/mm3 (0.0-0.4); Eosinophils % (Auto) 3.2 % (0.0-4.3); Hematocrit 35.8 % (30.3-42.9); Hemoglobin 11.5 gm/dl (10.1-14.3); Lymphocytes # (Auto) 1.6 K/mm3 (1.2-5.4); Mean Corpuscular HGB Conc 32 % (30-34); Mean Corpuscular Volume 75 fl (79-97); Monocytes # (Auto) 0.6 K/mm3 (0.0-0.8); Monocytes % (Auto) 11.8 % (0.0-7.3); Platelet Count 434 K/mm3 (140-440); Red Blood Count 4.75 M/mm3 (3.65-5.03); Red Cell Distribution Width 17.2 % (13.2-15.2)
[2019-09-12 05:20] LABS: BUN/Creatinine Ratio 20; Blood Urea Nitrogen 10 mg/dL (7-17); Calcium 8.5 mg/dL (8.4-10.2); Hemolysis Index 6
[2019-09-12] MEDS: MORPHINE 2 MG/1 ML INJ IV PRN (05:26)
--- NOTE | 2019-09-12 08:41 | Event Note ---
Date: 09/12/19 [id number]
[2019-09-12 08:54] VITALS: BP 109/67
--- NOTE | 2019-09-12 10:10 | Discharge Summary ---
Providers - Providers Date of Admission: 09/10/19 00:27 Date of discharge: 09/12/19 Attending physician: DONIS DUENAS 09/10/19 01:46 Consult to Physician [CONS] Routine Comment: Consulting Provider: VANNESSA WALKER Physician Instructions: Reason For Exam: constipation, weight loss.evaluate for colonoscopy 09/10/19 11:04 Physical Therapy Evaluation and Treat [CONS] Routine Comment: Reason For Exam: weakness 09/10/19 15:16 Consult to Physician [CONS] Routine Comment: Consulting Provider: BLANKA ROBIN Physician Instructions: Reason For Exam: sigmoid mass 09/10/19 16:14 Consult to Dietitian/Nutrition [CONS] Routine Physician Instructions: Reason For Exam: Reason for Consult: weight loss, malnutrition 09/11/19 16:29 Consult to Physician [CONS] Routine Comment: Consulting Provider: CLIFFORD DELEON Physician Instructions: Reason For Exam: metastatic ovarian cancer with colon involvement Primary care physician: [employer]RE [employer]CH[employer]IC Hospitalization Reason for admission: abd pain Hospital course: 69 yo F with hx of presented to [facility] with weight loss, abdominal pain, fatigue. Patient stated she had been having periumbilical and right sided abdominal pain for several months. She has lost 40 lbs and has no appetite. At [place], she underwent w/u with labs including CEA, CA19-9 which were reported as high. She also had a CT scan A/P which was concerning for a necrotic right adnexal mass, thickening of the sigmoid colon, and a liver lesion. This was felt to be worrisome for metasatic ovarian ca. Per records, the liver lesion was felt to be artifact due to pleural thickening and adnexal lesion was not accessible by IR biopsy due to location. Pt was sent to [facility] for further care. She underwent colonoscopy on 09/10/19 and was found to have a sigmoid mass that was not obstructing but could not be passed with the scope. Surgery was consulted and recommended repeat CT scan which revealed irregular right adnexal mass, peritoneal and omental deposits and irrgeular thickening of sigmoid colon without obstruction - favoring metastatic ovarian cancer, less likely 2 primary cancers. Surgery reported at this time, no urgent surgical intervention is indicated. If patient does become obstructed, would consider diverting colostomy. She is NOT obstructed at this time, therefore d/c home. Patient is to follow-up with oncology, Dr. 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 Disposition: DC-30 STILL A PATIENT Time spent for discharge: 32 - Discharge Diagnoses (1) Colonic mass Status: Acute (2) Constipation Status: Acute (3) Hypertension Status: Acute (4) Weight loss Status: Acute Core Measure Documentation - Palliative Care Palliative Care/ Comfort Measures: Not Applicable - Core Measures Any of the following diagnoses?: none Exam - Constitutional Vitals: Temp Pulse Resp BP Pulse Ox 98.6 F 80 20 109/67 97 09/12/19 01:51 09/12/19 07:21 09/12/19 05:56 09/12/19 08:52 09/12/19 07:21 General appearance: Present: no acute distress, well-nourished - EENT Eyes: Present: PERRL ENT: hearing intact, clear oral mucosa - Neck Neck: Present: supple, normal ROM - Respiratory Respiratory effort: normal Respiratory: bilateral: CTA - Cardiovascular Heart Sounds: Present: S1 & S2. Absent: rub, click - Extremities Extremities: pulses symmetrical, No edema Peripheral Pulses: within normal limits - Abdominal General gastrointestinal: Present: soft, non-tender, non-distended, normal bowel sounds Female genitourinary: Present: normal - Integumentary Integumentary: Present: clear, warm, dry - Musculoskeletal Musculoskeletal: gait normal, strength equal bilaterally - Psychiatric Psychiatric: appropriate mood/affect, intact judgment & insight - Neurologic Neurologic: CNII-XII intact, moves all extremities Plan Activity: advance as tolerated Weight Bearing Status: Weight Bear as Tolerated Diet: regular Follow up with: PRIMARY MD POOJA [Primary Care Provider] - 7 Days BLANKA ROBIN DO [Staff Physician] - 7 Days CLIFFORD DELEON MD [Staff Physician] - 7 Days Prescriptions: AtorvaSTATin 10 mg PO QHS #30 tab Chlorthalidone 50 mg PO DAILY #30 tab Aspirin EC [Halfprin EC] 81 mg PO DAILY #30 oxyCODONE /ACETAMINOPHEN [Percocet 5/325] 1 tab PO Q4HR #12 tab
[2019-09-12] MEDS ORDERED: FLU VACC QUAD 2019-20 (3 YR UP)/PF 60 MCG/0.5 ML SYRINGE IM ONE (12:00)
--- NOTE | 2019-09-12 13:46 | Event Note ---
Date: 09/12/19 Notified by pathology that the sigmoid colon mass path came back as primary colon adenocarcinoma. Notified Dr. Deleon with oncology and Dr. Priest with surgery. Patient discharged with plans to follow up with oncology.
--- NOTE | 2019-09-12 13:58 | Event Note ---
Date: 09/12/19 Patient being discharged today. She appears to be in great spirits and looking forward to going home. No pain, n/v. Tolerating soft diet. Patient advised to follow up with Dr. 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
--- NOTE | 2019-09-15 10:59 | Consultation ---
REFERRED BY: Dr. Ferreira. REASON FOR CONSULTATION: Ovarian versus colon cancer. HISTORY OF PRESENT ILLNESS: I saw the patient, a 69-year-old female on the medical floor. The patient has history of hypertension, hyperlipidemia, COPD. The patient was at [facility] from where she was transferred. She has history of weight loss. She also had abdominal discomfort and rectal pain for about a week. During this admission, the patient was seen by the surgical team and GI team. There was a question if this is some advanced ovarian cancer versus colon cancer. The patient had colonoscopy done. Biopsy is pending. I have been asked to evaluate the patient due to these issues. The patient is keen to go home. At this time, no headache, no visual disturbances, no ear discharge, no chest pain, no shortness of breath at rest. Has abdominal pain. Has loss of weight. No hematemesis, no hematochezia. PAST MEDICAL HISTORY: COPD, hypertension. PAST SURGICAL HISTORY: Appendix surgery. SOCIAL HISTORY: History of smoking present. FAMILY HISTORY: Heart disease. ALLERGIES: None. MEDICATIONS: Reviewed. PHYSICAL EXAMINATION: VITAL SIGNS: Temperature ____, pulse 81, respirations 18, BP 109/67. HEENT: No pallor, no icterus. NECK: No neck lymph nodes. HEART: S1, S2. LUNGS: Clear to auscultation anteriorly. ABDOMEN: Soft, no rebound. EXTREMITIES: No calf tenderness. NEUROLOGIC: Alert, awake. LABORATORY DATA: White cells 5, hemoglobin 11, MCV 75, platelets 134. Potassium 3.1, creatinine 0.5, calcium 8.5 and bilirubin 0.5. CA-125 of 159. RADIOLOGY: Abdomen and pelvis CT, complex partially cystic mass in the pelvis with a nodular enhancement 8.4 cm, peritoneal deposits which is 3.9 cm, sigmoid colon thickening. Liver is unremarkable. No bone lesions were found. Radiologically, metastatic ovarian cancer, sigmoid colon adenomas. Pathology, adenocarcinoma compatible with colon primary. ASSESSMENT AND PLAN: 1. Sigmoid mass. 2. Peritoneal mass. 3. Pathology shows colon cancer. 4. ____ presumed to be cancer. 5. Elevated CA-125. 6. History of weight loss. 7. I will follow the patient during inpatient stay and then in the clinic setting. 8. ____ MCV. The patient prefers to go back to [facility] for followup. I spoke with the surgical team and GI team to evaluate the patient. JOB# [id number] JOESPH/ALANIS
== END 2019-09-12 13:40 | disposition home health service (06) | DRG 374 ==
LOC: UNDOADMIN 18:53 → 2B-ACE 18:53
PROVIDERS: ADMIT Internal Medicine; ATTEND Hospitalist
PROC: 0DBN8ZX Excision of Sigmoid Colon, Via Natural or Artificial Opening Endoscopic, Diagnostic (ICD-10-PCS; principal; 2019-09-10)
DX: C18.9 Malignant neoplasm of colon, unspecified (principal); E43 Unspecified severe protein-calorie malnutrition; C56.9 Malignant neoplasm of unspecified ovary; K59.00 Constipation, unspecified; I10 Essential (primary) hypertension; D50.8 Other iron deficiency anemias; F17.210 Nicotine dependence, cigarettes, uncomplicated; E78.5 Hyperlipidemia, unspecified; J44.9 Chronic obstructive pulmonary disease, unspecified; Z90.49 Acquired absence of other specified parts of digestive tract; Z82.49 Family history of ischemic heart disease and other diseases of the circulatory system
CPT/HCPCS: 36415; 74177; 80048; 80053; 82378; 84134; 85025; 85610; 85730; 86301; 86304; 87116; 88305; 90686; G0378; J2270; J2405; J2704; J7030; Q9967